=== PATIENT | female | born 1955 | race Caucasian/White ===

== ENCOUNTER 2016-08-08 13:10 | Observation (INO) | payer OTHER ==
--- NOTE | ~2016-08-08 | HP ---
History And Physical [facility] [address] [place]. [address] NAME: DEMOND ALLEN : 57 STATUS : ADM Skylar PAT#: [id number] AGE: 61 ADM/REG DATE : 08/08/16 MR#: [id number] REPORT SERV DATE: 08/08/16 DICTATED BY: CLINT MCINTOSH DATE: 08/08/16 REPORT STATUS : Draft TRANSCRIBED BY: MODL DATE: 08/08/16 DATE OF ADMISSION: 08/08/2016 HISTORY OF PRESENT ILLNESS: Ms Allen is a 61-year-old female with a history of heart failure with reduced EF, coronary artery disease, status post CABG x6, hypertension, diabetes, hyperlipidemia, who presented to the emergency room with a complaint of worsening exertional dyspnea. The patient states that her symptoms have been ongoing for over two weeks. However, stated her symptoms have progressively worsened since then. The patient states that she was at [employer] today and then while walking [place] the [place] [employer] [place], she became very short of breath. Some nurses who are members of her [employer] noticed her severe dyspnea and instructed her to present to the emergency room. The patient was brought by a friend subsequently to the emergency room. Upon presentation, preliminary workup noted a BNP of greater than 500, and the patient was hypertensive with systolic blood pressure of greater than 200. The patient was admitted on the Hospitalist Service for further management. At the time of my evaluation, the patient corroborated the above story. She states that she has one pillow orthopnea. She reports paroxysmal nocturnal dyspnea. She states that she has decreased exercise intolerance to about a couple of feet from being able to hike from several hours previously. She denies any chest pain, and no palpitations, no lightheadedness, no dizziness, no fever, no chills, no syncopal episodes. REVIEW OF SYSTEMS: Fourteen-point review of system was performed. All systems were negative except as noted in the HPI. PAST MEDICAL HISTORY: 1. Coronary artery disease status post CABG x6 in 07/2015. 2. Unexplained hypertension. 3. Unexplained diabetes type 2. Last A1c was 10.5. 4. Gastroesophageal reflux disease. 5. Hypercholesterolemia. 6. Hypothyroidism. 7. Heart failure with reduced EF. 8. Crohn disease in remission. PAST SURGICAL HISTORY: 1. CABG x6 in 07/2015. 2. Bilateral foot surgery. 3. Appendectomy. 4. Cholecystectomy. 5. Hysterectomy with bilateral oophorectomy. FAMILY HISTORY: Significant for cancer and congestive heart failure. ALLERGIES: THE PATIENT IS ALLERGIC TO PENICILLIN, SULFA, MORPHINE, CODEINE, LATEX, PEACH, AND DROPERIDOL. History And Physical [address] [address] NAME: DEMOND ALLEN : 57 STATUS : ADM Skylar PAT#: [id number] AGE: 61 ADM/REG DATE : 08/08/16 MR#: [id number] REPORT SERV DATE: 08/08/16 DICTATED BY: CLINT MCINTOSH DATE: 08/08/16 REPORT STATUS : Draft TRANSCRIBED BY: RANDALL DATE: 08/08/16 SOCIAL HISTORY: The patient denies any tobacco use, any alcohol use, or illicit drug use. The patient is and . CURRENT MEDICATIONS: Albuterol one puff inhalation q.4 hours, Xanax 0.5 mg p.o. daily p.r.n., amlodipine 5 mg p.o. at bedtime, aspirin 81 mg p.o., benazepril 10 mg p.o. at bedtime, Caltrate 600 mg p.o. at bedtime, Plavix 75 mg p.o. at bedtime, coenzyme Q10 200 mg p.o. daily, Wysox 1/2 to 1 tab p.o. twice a day p.r.n., insulin aspart 10 units subcu before meals, metformin 1000 mg p.o. twice a day, Toprol-XL 25 mg p.o. at bedtime. LABORATORY DATA: WBC 8.8, hemoglobin 12, hematocrit 15.9, platelet 215, sodium 141, potassium 4.3, chloride 103, bicarb 26, BUN 17, creatinine 0.98, glucose 338, troponin 0.04, BNP 566.5. IMAGING: On chest x-ray my read, chest x-ray significant for increased interstitial markings with some evidence of fluid in the fissures. ASSESSMENT AND PLAN: 1. Heart failure with reduced EF. The patient has an EF of 48% to 60%, currently decompensated, positive dyspnea, trace pitting edema. Plan is gentle diuresis. 2. Exertional dyspnea. Plan is we will obtain a stress test in the morning. 3. Diabetes type 2. We will continue the patient on home insulin regimen. Her A1c has improved on this regimen from 12.2 to 10.5. We will continue for now to up-titrate her insulin as needed. 4. Hypertension, uncontrolled. Restart home medications and titrate as needed. 5. Hydralazine 10 mg IV q.8 hours p.r.n. for systolic blood pressure greater than 170. 6. Gastroesophageal reflux disease. The patient on PPI. We will continue current management. 7. Hyperlipidemia. Continue statin therapy. 8. Hypothyroidism: Continue levothyroxine. 9. Coronary artery disease status post CABG x6. We will monitor. CODE STATUS: The patient will remain full code at this time. DVT prophylaxis with subcu heparin. JALEESA/RANDALL Clint Mcintosh MD / [id number] CC: Clint Mcintosh MD
--- NOTE | ~2016-08-08 | DS ---
Discharge Summary [facility] [address] [place]. [address] NAME: DEMOND ALLEN : 57 STATUS : ADM Skylar PAT#: [id number] AGE: 61 ADM/REG DATE : 08/08/16 MR#: [id number] REPORT SERV DATE: 08/10/16 DICTATED BY: Evelina ANAYA DATE: 08/10/16 REPORT STATUS : Draft TRANSCRIBED BY: MODL DATE: 08/10/16 ADMISSION DATE: 08/08/2016 DISCHARGE DATE: 08/10/2016 DIAGNOSES AT DISCHARGE: Exertional dyspnea, etiology is unclear; possible sleep apnea; hypertension; gastroesophageal reflux disease; hyperlipidemia; coronary disease with prior CABG; insulin-requiring diabetes; fibromyalgia. CONSULTS: Cardiology. PROCEDURES: Stress test and echocardiogram. BRIEF HOSPITAL COURSE: A 61-year-old female patient with multiple medical issues with previous CABG, was admitted with exertional dyspnea x2 weeks. The patient's chest x-ray was clear. Labs were unremarkable. She did have a slightly elevated BNP. Evaluation in the hospital included echocardiogram, which showed normal ejection fraction and myocardial perfusion imaging that was negative for ischemia. Seen and evaluated by [facility] Cardiology. Their recommendations were to continue current medications and pursue outpatient evaluation for possible sleep apnea. Recommendations were for ongoing fluid and sodium restriction and restart Lasix 40 mg daily as well as the above-mentioned outpatient pulmonary evaluation. The patient was felt stable to be discharged home on 08/10/2016. She will continue her current medications with the addition of Lasix 40 mg q.a.m., and we will arrange for her to follow up with [facility] Pulmonary, Dr. Merida, in the office in the next one to two weeks for ongoing pulmonary evaluation of her exertional dyspnea. [facility] Evelina Anaya M.D. / [id number] CC: Eddy Pandey M.D.
--- NOTE | ~2016-08-08 | CN ---
Consultation Report [facility] [address] [place]. [address] NAME: MAGDALENA ALLEN : 57 STATUS : ADM Skylar PAT#: [id number] AGE: 61 ADM/REG DATE : 08/08/16 MR#: [id number] REPORT SERV DATE: 08/10/16 DICTATED BY: DATE: REPORT STATUS : Draft TRANSCRIBED BY: MODL DATE: 08/09/16 CONSULTATION DATE OF CONSULTATION: 08/09/2016 CHIEF COMPLAINT/REASON FOR CONSULT: Persistent shortness of breath. PRIMARY SCALE CLERK: Mohsen Figueredo MD HISTORY OF PRESENT ILLNESS: Mrs. Magdalena Allen is a very pleasant 61-year-old female who states that she has been feeling poorly for about 2 months. She states that she has been feeling lethargic, fatigue, and had low energy. She stated that on outpatient basis, she has been trying to diet and lost about 13 pounds, and then gained it back rapidly within 5 to 7 days. She has noted increasing abdominal distention and lower extremity edema 2 to 3 days prior to admission. Despite these symptoms, the patient did not take her outpatient Lasix, she was to be taking 40 mg once per day via the cardiology record from 04/2016. She stated that she had this fluid medicine at home, but did not correlate her weight gain, lower extremity edema, and abdominal distention with a need to take her regularly scheduled Lasix. She stated that she was given nitroglycerin and Lasix in the emergency department, which completely resolved her shortness of breath. Interestingly, the patient had been diagnosed with obstructive sleep apnea several years ago. She stated that she was told that she stopped breathing approximately 100 times per night, this is unclear at this time. I do not have the study available, however, the patient's CPAP machine has been broken from 6 years, and she has never pursued getting it replaced or having treatment for her obstructive sleep apnea. Also, the patient had pulmonary function test performed on 05/10/2016 which demonstrated decreased forced vital capacity indicating neuromuscular weakness, poor effort or restriction. Her lung volumes and DLCO were normal. ALLERGIES: 1. BEE STINGS. 2. CODEINE. 3. DROPERIDOL. 4. LASIX. 5. MORPHINE. 6. PENICILLIN. 7. SULFA. 8. DOPAMINE. SOCIAL HISTORY: The patient does not smoke, drink, or use extracurricular drugs. OUTPATIENT MEDICATIONS: Per the patient's list were multiple supplements: 1. Metoprolol 25 mg p.o. at night. 2. Clopidogrel 75 mg p.o. daily. 3. Benazepril 10 mg p.o. daily. 4. Amlodipine 5 mg p.o. daily. Consultation Report [facility] [id number] [place]. [address] NAME: MAGDALENA ALLEN : 57 STATUS : ADM Skylar PAT#: [id number] AGE: 61 ADM/REG DATE : 08/08/16 MR#: [id number] REPORT SERV DATE: 08/10/16 DICTATED BY: DATE: REPORT STATUS : Draft TRANSCRIBED BY: MODL DATE: 08/09/16 5. Aspirin 81 mg p.o. daily. 6. Unfortunately, Lasdewey was not on her medication list. REVIEW OF SYSTEMS: All systems reviewed and is negative except for dictated in HPI. LABORATORY DATA: White blood cell count is 8, hemoglobin 9.9, hematocrit 35.9, platelet count is 218. INR on admission 1.1. Sodium 141, potassium 3.8, BUN 16, creatinine 0.89, glucose is 168, albumin is 2.8, troponin 0.04 to 0.05. BNP is 556. Chest x-ray performed on admission demonstrated mild pulmonary vascular congestion. An EKG performed on admission demonstrated normal sinus rhythm, there were lateral EKG changes. An EKG performed on admission demonstrated normal sinus rhythm with lateral and anterolateral T-wave inversions. This is not changed from a previous EKG performed on 04/18/2016. Myocardial perfusion stress test performed on 08/09/2016, demonstrated no evidence of ischemia and postexercise LVEF was 60%. An echocardiogram performed on 04/17/2016, demonstrated normal left ventricular systolic function with moderate concentric left ventricular hypertrophy and mild mitral regurgitation. Ejection fraction was 60%. IMPRESSION, REPORT, AND PLAN: 1. Dyspnea. 2. Untreated obstructive sleep apnea. 3. Pulmonary function tests consistent with neuromuscular weakness, decreased effort versus restriction. 4. Obesity. 5. Uncontrolled diabetes mellitus. 6. Coronary artery disease, status post coronary artery bypass grafting without ischemia. 7. Preserved left ventricular systolic function via stress and echocardiogram. 8. Medical noncompliance. RECOMMENDATIONS: 1. Would strongly recommend discontinuation of this Miller catheter in the ambulatory patient. 2. Would limit her fluid to less than 2 L per day. 3. Would limit her sodium to less than 2 g per day. 4. Would restart her home dose of Lasix at 40 mg per day. 5. Would arrange for obstructive sleep apnea evaluation and treatment. 6. Follow up outpatient with Dr. Figueredo. It has been my pleasure to participate in this patient's care. [facility] Consultation Report [address] [place]. [address] NAME: MAGDALENA ALLEN : 57 STATUS : ADM Skylar PAT#: [id number] AGE: 61 ADM/REG DATE : 08/08/16 MR#: [id number] REPORT SERV DATE: 08/10/16 DICTATED BY: DATE: REPORT STATUS : Draft TRANSCRIBED BY: RANDALL DATE: 08/09/16 Isadora Gandhi M.D. / [id number] CC: MD Mirna Kohler M.D.
--- NOTE | ~2016-08-08 | CN ---
Consultation Report [facility] [address] [place]. [address] NAME: DEMOND ALLEN : 57 STATUS : ADM Skylar PAT#: [id number] AGE: 61 ADM/REG DATE : 08/08/16 MR#: [id number] REPORT SERV DATE: 08/09/16 DICTATED BY: DATE: REPORT STATUS : Draft TRANSCRIBED BY: MODL DATE: 08/09/16 DATE OF CONSULTATION: CONTINUATION: An EKG performed on admission demonstrated normal sinus rhythm with lateral and anterolateral T-wave inversions. This is not changed from a previous EKG performed on 04/18/2016. Myocardial perfusion stress test performed on 08/09/2016, demonstrated no evidence of ischemia and postexercise LVEF was 60%. An echocardiogram performed on 04/17/2016, demonstrated normal left ventricular systolic function with moderate concentric left ventricular hypertrophy and mild mitral regurgitation. Ejection fraction was 60%. IMPRESSION, REPORT, AND PLAN: 1. Dyspnea. 2. Untreated obstructive sleep apnea. 3. Pulmonary function tests consistent with neuromuscular weakness, decreased effort versus restriction. 4. Obesity. 5. Uncontrolled diabetes mellitus. 6. Coronary artery disease, status post coronary artery bypass grafting without ischemia. 7. Preserved left ventricular systolic function via stress and echocardiogram. 8. Medical noncompliance. RECOMMENDATIONS: 1. Would strongly recommend discontinuation of this Miller catheter in the ambulatory patient. 2. Would limit her fluid to less than 2 L per day. 3. Would limit her sodium to less than 2 g per day. 4. Would restart her home dose of Lasix at 40 mg per day. 5. Would arrange for obstructive sleep apnea evaluation and treatment. 6. Follow up outpatient with Dr. Figueredo. It has been my pleasure to participate in this patient's care. [facility] Isadora Gandhi M.D. / [id number] CC: MD Mirna Kohler M.D. Consultation Report [address] [place]. [address] NAME: DEMOND ALLEN : 57 STATUS : ADM Skylar PAT#: [id number] AGE: 61 ADM/REG DATE : 08/08/16 MR#: [id number] REPORT SERV DATE: 08/09/16 DICTATED BY: DATE: REPORT STATUS : Draft TRANSCRIBED BY: MODL DATE: 08/09/16 Mohsen Figueredo M.D.
[2016-08-08 11:06] LABS: BASOPHILS 0.5 %; BASOPHILS ABSOLUTE 0.04 10/3/uL (0.0-0.16); EOSINOPHILS 3.6 %; EOSINOPHILS ABSOLUTE 0.32 10/3/uL (0.0-0.53); IMMATURE GRANULOCYTES 0.6 %; IMMATURE GRANULOCYTES ABSOLUTE 0.05 10/3/uL (0.0-0.11); LYMPHOCYTES 28.7 %; LYMPHOCYTES ABSOLUTE 2.52 10/3/uL (0.67-4.30); MEAN CORPUS HGB CONC 33.4 g/dL (32.0-36.0); MEAN CORPUSCULAR HEMOGLOB 30.7 pg (26.0-34.0); MEAN CORPUSCULAR VOLUME 91.8 fL (80-100); MEAN PLATELET VOLUME 10.3 fL (9.2-13.0); MONOCYTES 5.8 %; MONOCYTES ABSOLUTE 0.51 10/3/uL (0.21-1.20); NEUTROPHILS 60.8 %; NEUTROPHILS ABSOLUTE 5.34 10/3/uL (2.02-8.40); PLATELET COUNT 215 10/3/uL (150-400); RBC DISTRIBUTION WIDTH 14.4 % (12.0-16.0); RED CELL COUNT 3.91 10/6/uL (4.0-5.6); WHITE BLOOD CELLS 8.8 10/3/uL (4.5-10.5)
[2016-08-08 11:09] LABS: HEMATOCRIT 35.9 % (36.0-48.0); MANUAL DIFF NO %
[2016-08-08 11:19] LABS: BUN (BLOOD UREA NITROGEN) 17 MG/DL (6-23); CHLORIDE, SERUM 103 MMOL/L (96-112); CREATININE 0.98 MG/DL (0.55-1.02); GFR AFRICAN AMERICAN 73 ML/MIN (>=60); GFR NON AFRICAN AMERICAN 63 ML/MIN (>=60); INTERNATIONAL NORMAL RATI 1.1 UNITS (-); PARTIAL THROMBO TIME 24.6 SEC (22.5-37.2); POTASSIUM, SERUM 4.3 MMOL/L (3.5-5.3); PROTIME (NOT ORD) 13.7 SEC (12.0-14.5); SODIUM, SERUM 141 MMOL/L (135-148); TROPONIN I 0.04 NG/ML (<0.05)
[2016-08-08 11:20] LABS: CALCIUM, SERUM 8.7 MG/DL (8.5-10.4); CO2 (CARBON DIOXIDE) 26 MMOL/L (24-34); GLUCOSE, SERUM 338 MG/DL (60-99)
[~2016-08-08 13:10] MED LIST: APRES50 PO; ASAB PO; CHOLESTEROL RX PO; CINNAMONPO PO; CLOTRIM/BETA EX; CO Q-10 OTC PO; CO Q-10100 MG PO; COREG25 PO; COREG3 PO; COREG6 PO; DHA PO; EPIPEN0.3 IM; FERROUS SULF325 M1 PO; GLUCOPHAGE1000 MG PO; HALF81 PO; HUMULIN N1 ML SC; HUMULIN R1 ML SC; INSNOVN SC; KDUR10 PO; L40 PO; LEVEMFLXPN SC; LIPITOR80 MG PO; LOTE40 PO; LOTE5 PO; LOTREL1 CA4 PO; MAGNEBIND PO; MAGONATE PO; MAGOX4 PO; MULTIVIT/MIN PO; NATURA2 OP; NITROSTAT0.4 MG SL; NORCO1 TA1 PO; NORV10 PO; NORV5 PO; NOVOLOG SC; NOVOPEN SC; OMEGA PO; PLAVIX PO; POT GLUCONAT595 M1 PO; POTASSIUM GLUCONATE PO; PRILO PO; PRILOSEC OTC20 MG PO; PRILOSEC40 MG PO; PRIN20 PO; PROAIR HFA INH; PROVENTSOL INH; PROVHFA INH; SLO-NIACIN250 MG PO; SYN1 PO; TOUJEO SC; TUMERIC 500MG OTC PO; VICODINTAB PO; VITAMIN D1000 UNI1 PO; X5 PO
[2016-08-08] MEDS ORDERED: NORV5 PO (14:04)
[2016-08-08] MEDS ORDERED: GLUCOPHAGE1000 MG PO (14:04)
[2016-08-08] MEDS ORDERED: PLAVIX PO (14:04)
[2016-08-08] MEDS ORDERED: LOTE10 PO (14:04)
[2016-08-08] MEDS ORDERED: TOPXL25 PO (14:04)
[2016-08-08] MEDS ORDERED: NOVOLOG SC (14:05)
[2016-08-08] MEDS ORDERED: ASAB PO (14:05)
[2016-08-08] MEDS ORDERED: GARCINIA CAMBOGIA PO (14:05)
[2016-08-08] MEDS ORDERED: APPLE CIDER VINEGAR PO (14:06)
[2016-08-08] MEDS ORDERED: [UNRECOGNIZED DRUG - OTHER] PO (14:06)
[2016-08-08] MEDS ORDERED: VITAMIN B12 OTC PO (14:07)
[2016-08-08] MEDS ORDERED: [UNRECOGNIZED DRUG - OTHER] PO (14:07)
[2016-08-08] MEDS ORDERED: TURMERIC PO (14:07)
[2016-08-08] MEDS ORDERED: OMEGA XL PO (14:08)
[2016-08-08] MEDS ORDERED: CO Q-10200 MG PO (14:08)
[2016-08-08] MEDS ORDERED: LIVER AID PO (14:08)
[2016-08-08] MEDS ORDERED: ACIDOPHILU2 PO (14:09)
[2016-08-08] MEDS ORDERED: CALTRA600D PO (14:09)
[2016-08-08] MEDS ORDERED: CINNAMONPO PO (14:09)
[2016-08-08] MEDS ORDERED: FISH OIL OTC PO (14:09)
[2016-08-08] MEDS ORDERED: [UNRECOGNIZED DRUG - OTHER] PO (14:10)
[2016-08-08] MEDS ORDERED: X5 PO (14:10)
[2016-08-08] MEDS ORDERED: NORCO1 TA1 PO (14:10)
[2016-08-08] MEDS ORDERED: CLINDA150 PO (14:11)
[2016-08-08] MEDS ORDERED: TEARS PURE OPH (14:12)
[2016-08-08] MEDS ORDERED: ALBUTEROL0.083 % INH (14:12)
[2016-08-08] MEDS ORDERED: PROVHFA INH (14:12)
[2016-08-08 23:59] LABS: ASCORBIC ACID (UR NOT ORDER) NEG (NEG); BILIRUBIN, URINE NEGATIVE (NEG); KETONE, URINE NEGATIVE (NEG); WBC (NOT ORDERED) (RFLEX) 2 (0-5)
[2016-08-09 00:04] LABS: LEUKOCYTE ESTERASE(NOT OR TRACE (NEG)
[2016-08-09 05:22] LABS: BASOPHILS 0.4 %; BASOPHILS ABSOLUTE 0.03 10/3/uL (0.0-0.16); EOSINOPHILS 4.7 %; EOSINOPHILS ABSOLUTE 0.38 10/3/uL (0.0-0.53); HEMATOCRIT 35.9 % (36.0-48.0); HEMOGLOBIN 11.9 g/dL (12.0-16.0); IMMATURE GRANULOCYTES 0.4 %; IMMATURE GRANULOCYTES ABSOLUTE 0.03 10/3/uL (0.0-0.11); LYMPHOCYTES 32.4 %; MEAN CORPUS HGB CONC 33.1 g/dL (32.0-36.0); MEAN CORPUSCULAR HEMOGLOB 30.4 pg (26.0-34.0); MEAN CORPUSCULAR VOLUME 91.6 fL (80-100); MEAN PLATELET VOLUME 9.9 fL (9.2-13.0); MONOCYTES 6.1 %; MONOCYTES ABSOLUTE 0.49 10/3/uL (0.21-1.20); NEUTROPHILS ABSOLUTE 4.49 10/3/uL (2.02-8.40); PLATELET COUNT 218 10/3/uL (150-400); RBC DISTRIBUTION WIDTH 14.3 % (12.0-16.0); RED CELL COUNT 3.92 10/6/uL (4.0-5.6)
[2016-08-09 05:26] LABS: MANUAL DIFF NO %
[2016-08-09 05:33] LABS: BUN (BLOOD UREA NITROGEN) 16 MG/DL (6-23); CALCIUM, SERUM 9.3 MG/DL (8.5-10.4); CHLORIDE, SERUM 101 MMOL/L (96-112); CREATININE 0.89 MG/DL (0.55-1.02); GFR AFRICAN AMERICAN 82 ML/MIN (>=60); GFR NON AFRICAN AMERICAN 70 ML/MIN (>=60); POTASSIUM, SERUM 3.8 MMOL/L (3.5-5.3); SGOT(AST) 16 U/L (5-40); SGPT(ALT) 32 U/L (5-65); SODIUM, SERUM 141 MMOL/L (135-148); TOTAL BILIRUBIN 0.7 MG/DL (0-1.2); TOTAL PROTEIN 6.1 G/DL (6.0-8.5)
[2016-08-09 05:37] LABS: A/G RATIO 0.8 (0.7-1.9); ALBUMIN 2.8 G/DL (3.5-5.0); ALKALINE PHOSPHATASE 93 U/L (45-117); CO2 (CARBON DIOXIDE) 32 MMOL/L (24-34); GLOBULIN 3.3 G/DL (2.5-4.1); GLUCOSE, SERUM 168 MG/DL (60-99)
[2016-08-10 05:26] LABS: BASOPHILS 0.4 %; BASOPHILS ABSOLUTE 0.03 10/3/uL (0.0-0.16); EOSINOPHILS 5.1 %; EOSINOPHILS ABSOLUTE 0.38 10/3/uL (0.0-0.53); HEMATOCRIT 37.8 % (36.0-48.0); HEMOGLOBIN 12.4 g/dL (12.0-16.0); IMMATURE GRANULOCYTES 0.8 %; IMMATURE GRANULOCYTES ABSOLUTE 0.06 10/3/uL (0.0-0.11); LYMPHOCYTES 30.5 %; LYMPHOCYTES ABSOLUTE 2.29 10/3/uL (0.67-4.30); MEAN CORPUS HGB CONC 32.8 g/dL (32.0-36.0); MEAN CORPUSCULAR HEMOGLOB 30.2 pg (26.0-34.0); MEAN CORPUSCULAR VOLUME 92.2 fL (80-100); MEAN PLATELET VOLUME 10.4 fL (9.2-13.0); MONOCYTES 6.9 %; MONOCYTES ABSOLUTE 0.52 10/3/uL (0.21-1.20); NEUTROPHILS 56.3 %; NEUTROPHILS ABSOLUTE 4.24 10/3/uL (2.02-8.40); PLATELET COUNT 211 10/3/uL (150-400); RBC DISTRIBUTION WIDTH 14.6 % (12.0-16.0); WHITE BLOOD CELLS 7.5 10/3/uL (4.5-10.5)
[2016-08-10 05:33] LABS: MANUAL DIFF NO %
[2016-08-10 05:37] LABS: A/G RATIO 0.8 (0.7-1.9); ALBUMIN 2.8 G/DL (3.5-5.0); ALKALINE PHOSPHATASE 93 U/L (45-117); BUN (BLOOD UREA NITROGEN) 17 MG/DL (6-23); CALCIUM, SERUM 9.1 MG/DL (8.5-10.4); CHLORIDE, SERUM 105 MMOL/L (96-112); CO2 (CARBON DIOXIDE) 28 MMOL/L (24-34); GFR AFRICAN AMERICAN 71 ML/MIN (>=60); GFR NON AFRICAN AMERICAN 61 ML/MIN (>=60); GLOBULIN 3.4 G/DL (2.5-4.1); GLUCOSE, SERUM 136 MG/DL (60-99); POTASSIUM, SERUM 4.4 MMOL/L (3.5-5.3); SGOT(AST) 26 U/L (5-40); SGPT(ALT) 31 U/L (5-65); SODIUM, SERUM 141 MMOL/L (135-148); TOTAL BILIRUBIN 0.5 MG/DL (0-1.2); TOTAL PROTEIN 6.2 G/DL (6.0-8.5)
[2016-08-10 05:46] LABS: PLATELET ESTIMATE ADQ (ADEQUATE); RBC MORPHOLOGY NORM (NORMAL)
[2016-08-10] MEDS ORDERED: L40 PO (19:33)
== END 2016-08-10 21:05 | disposition home or self-care (01) ==
LOC: ER 13:10 → CDU1 14:09 → CDU2 14:50
PROVIDERS: Hospitalist; Internal Medicine
DX: I11.0 Hypertensive heart disease with heart failure (principal); I50.9 Heart failure, unspecified; E11.9 Type 2 diabetes mellitus without complications; M32.0 Drug-induced systemic lupus erythematosus; K21.9 Gastro-esophageal reflux disease without esophagitis; E78.5 Hyperlipidemia, unspecified; E03.9 Hypothyroidism, unspecified; I25.10 Atherosclerotic heart disease of native coronary artery without angina pectoris; E78.00 Pure hypercholesterolemia, unspecified; M79.7 Fibromyalgia; J45.909 Unspecified asthma, uncomplicated; I25.2 Old myocardial infarction; M19.90 Unspecified osteoarthritis, unspecified site; F41.9 Anxiety disorder, unspecified; D32.9 Benign neoplasm of meninges, unspecified; Z86.718 Personal history of other venous thrombosis and embolism; Z95.5 Presence of coronary angioplasty implant and graft; Z82.49 Family history of ischemic heart disease and other diseases of the circulatory system; Z88.0 Allergy status to penicillin; Z88.2 Allergy status to sulfonamides; Z91.040 Latex allergy status; Z88.6 Allergy status to analgesic agent; Z88.5 Allergy status to narcotic agent; Z88.8 Allergy status to other drugs, medicaments and biological substances; Z91.030 Bee allergy status; Z90.49 Acquired absence of other specified parts of digestive tract; Z90.710 Acquired absence of both cervix and uterus; Z90.722 Acquired absence of ovaries, bilateral; Z98.890 Other specified postprocedural states; Z90.89 Acquired absence of other organs; Z79.899 Other long term (current) drug therapy
CPT/HCPCS: 71010; 71250; 74150; 78452; 80048; 80053; 81001; 82962; 83735; 83880; 84484; 85025; 85610; 85730; 93005; 93017; 96372; 96374; 96375; 99285; A9270-GY; A9502; G0378; J0360; J2405